=== PATIENT | female | born 1960 | race Hispanic/Latino ===

== ENCOUNTER 2018-10-31 09:12 | Emergency (ER) | payer BC ==
[~2018-10-31] VITALS: Ht 152.4 cm; Wt 63.5 kg
--- OUTSIDE RECORDS SUMMARY | 2018-10-31 09:15 | XMS REPORT ---
Author Author [facility] Address Unknown Phone Unavailable Care Team Providers Care Learning Support Resource Room Teacher Name Role Phone Unavailable Unavailable Payers Payer Name Policy Type Policy Number Effective Date Expiration Date Problems This patient has no known problems. Allergies, Adverse Reactions, Alerts Allergy Name Allergy Type Status Severity Reaction(s) Onset Date Inactive Date Treating Clinician Comments No Known Drug Intolerances DA Active U 2004-09-23 00:00:00 No Known Contrast Allergies DA Active U 2004-09-23 00:00:00 No Known Drug Allergies DA Active U 2004-09-23 00:00:00 No Known Food Allergies DA Active U 2004-09-23 00:00:00 No Known Other Allergies DA Active U 2004-09-23 00:00:00 Medications This patient has no known medications.
[2018-10-31 09:41] LABS: BILIRUBIN,URINE NEGATIVE (NEGATIVE); CLARITY,URINE CLEAR (CLEAR); COLOR,URINE YELLOW (YELLOW); KETONES,URINE NEGATIVE (NEGATIVE); LEUKOCYTE ESTERASE ,URINE NEGATIVE (NEGATIVE); NITRITE,URINE NEGATIVE (NEGATIVE); PROTEIN,URINE DIPSTICK NEGATIVE (NEGATIVE); URINE UROBILINOGEN 0.2 mg/dL (0.2 - 1)
[2018-10-31 09:47] LABS: BASOPHILS % 0.2 % (0.0-1.0); EOSINOPHILS # (AUTO) 0.2 (0.0-0.4); EOSINOPHILS % 2.7 % (0.0-6.0); HEMATOCRIT 39.5 % (34.2-44.1); HEMOGLOBIN 13.1 g/dL (12.0-16.0); LYMPHOCYTES # (AUTO) 1.7 (1.0-3.2); LYMPHOCYTES % 19.5 % (18.0-39.1); MEAN CORPUSCULAR HEMOGLOBIN 30.3 pg (28-32); MEAN CORPUSCULAR HGB CONC 33.2 g/dL (31-35); MEAN CORPUSCULAR VOLUME 91.4 fL (81-99); MONOCYTES # (AUTO) 0.6 (0.2-0.8); MONOCYTES % 7.2 % (4.4-11.3); PLATELET COUNT 244 x10e3/uL (140-360); RED BLOOD COUNT 4.32 x10e6/uL (3.6-5.1); RED CELL DISTRIBUTION WIDTH 14.5 % (11.7-14.4)
[2018-10-31 10:01] LABS: BACTERIA,URINE RARE /HPF; EPITHELIAL CELLS,URINE FEW /LPF
[2018-10-31 10:08] LABS: ALANINE AMINOTRANSFERASE 24 IU/L (0-55); ALKALINE PHOSPHATASE 69 IU/L (40-150); ANION GAP 13.1 mmol/L (8-16); BLOOD UREA NITROGEN 15 mg/dL (7-26); BUN/CREATININE RATIO 18 (6-25); CALCIUM 10.3 mg/dL (8.4-10.2); CARBON DIOXIDE 27 mmol/L (22-29); CHLORIDE 103 mmol/L (98-107); CREATININE, SERUM 0.83 mg/dL (0.57-1.11); EST GLOMERULAR FILTRATION RATE > 60 ML/MIN (60-); GLUCOSE 136 mg/dL (74-118); POTASSIUM 4.1 mmol/L (3.5-5.1); SODIUM 139 mmol/L (136-145)
[2018-10-31 10:35] LABS: RBC,URINE 0-5 /HPF (0-5)
[2018-10-31] MEDS ORDERED: DICYCLOMINE HCL20 MG PO (10:40)
[2018-10-31] MEDS ORDERED: SODIUM CHLORIDE 0.9% 1000ML 1,000 ML IV SCH (11:00)
[2018-10-31] MEDS ORDERED: KETOROLAC TROMETHAMINE 30 MG/ML VIAL IV NR (11:00)
--- NOTE | 2018-10-31 12:11 | Diagnostic Imaging Report ---
EXAM: CT Abdomen and Pelvis WITH intravenous contrast INDICATION: Left lower quadrant abdominal pain COMPARISON: None. TECHNIQUE: Abdomen and pelvis were scanned utilizing a multidetector helical scanner from the lung base to the pubic symphysis after administration of IV contrast. Coronal and sagittal reformations were obtained. Routine protocol was performed. Scan was performed during portal venous phase. IV CONTRAST: 100mL of Isovue 370 ORAL CONTRAST: Water RADIATION DOSE: Total DLP: 668.9 mGy*cm Dose modulation, iterative reconstruction, and/or weight based adjustment of the mA/kV was utilized to reduce the radiation dose to as low as reasonably achievable. FINDINGS: LOWER THORAX: Mild bibasilar dependent subsegmental atelectasis. Small hiatal hernia. HEPATOBILIARY: Diffuse hepatic steatosis. No focal liver lesions. No biliary ductal dilation. Unremarkable gallbladder. SPLEEN: No splenomegaly. PANCREAS: No focal masses or ductal dilatation. ADRENALS: No adrenal nodules. KIDNEYS/URETERS: No hydronephrosis, stones, or solid mass lesions. PELVIC ORGANS/BLADDER: Unremarkable. PERITONEUM / RETROPERITONEUM: No free air or fluid. LYMPH NODES: No lymphadenopathy. VESSELS: Unremarkable. GI TRACT: Severe sigmoid and descending colon diverticulosis. Wall thickening involving a segment of sigmoid measuring approximately 6 cm colon associated with many diverticuli with adjacent fat stranding. No free intraperitoneal air or associated focal fluid collection. No other areas of abnormal bowel wall thickening. No bowel obstruction. Normal appendix. BONES AND SOFT TISSUES: No acute osseous injury. No suspicious lytic or blastic lesions. IMPRESSION: Acute sigmoid diverticulitis. No free air or associated diverticular abscess. Hepatic steatosis. Signed by: Supriya Smith MD on 10/31/2018 12:07 PM
[2018-10-31] MEDS ORDERED: FLAGYL500 MG PO (12:45)
[2018-10-31] MEDS ORDERED: CIPRO500 MG PO (12:45)
[2018-10-31] MEDS ORDERED: IOPAMIDOL 370 MG/ML 200 ML INFUS..BTL INJ ONE (13:35)
[2018-10-31] MEDS ORDERED: SODIUM CHLORIDE 0.9% 50ML 50 ML ONE (13:35)
== END 2018-10-31 13:18 | disposition home or self-care (01) ==
LOC: ER 09:12
DX: R10.32 Left lower quadrant pain (principal); K57.32 Diverticulitis of large intestine without perforation or abscess without bleeding; K76.0 Fatty (change of) liver, not elsewhere classified
CPT/HCPCS: 36415; 74177; 80053; 81001; 85025; 99284; J1885; J7030; Q9967

== ENCOUNTER 2018-12-03 07:45 | Inpatient (IN) | payer BC ==
[~2018-12-03] VITALS: Ht 152.4 cm; Wt 63.5 kg
[~2018-12-03 07:45] MED LIST: CIPRO500 MG PO; DICYCLOMINE HCL20 MG PO; FLAGYL500 MG PO
[2018-12-03] MEDS ORDERED: SODIUM CHLORIDE 0.9% 1000ML 1,000 ML IV STA (08:11)
[2018-12-03 08:27] LABS: BASOPHILS % 0.2 % (0.0-1.0); EOSINOPHILS # (AUTO) 0.2 (0.0-0.4); EOSINOPHILS % 2.2 % (0.0-6.0); HEMATOCRIT 40.5 % (34.2-44.1); HEMOGLOBIN 13.6 g/dL (12.0-16.0); LYMPHOCYTES # (AUTO) 1.6 (1.0-3.2); LYMPHOCYTES % 15.5 % (18.0-39.1); MEAN CORPUSCULAR HEMOGLOBIN 30.4 pg (28-32); MEAN CORPUSCULAR HGB CONC 33.6 g/dL (31-35); MEAN CORPUSCULAR VOLUME 90.4 fL (81-99); MONOCYTES # (AUTO) 0.8 (0.2-0.8); MONOCYTES % 8.1 % (4.4-11.3); NEUTROPHILS # (AUTO) 7.6 (2.1-6.9); NEUTROPHILS % 73.6 % (38.7-80.0); PLATELET COUNT 225 x10e3/uL (140-360); RED BLOOD COUNT 4.48 x10e6/uL (3.6-5.1); RED CELL DISTRIBUTION WIDTH 13.5 % (11.7-14.4)
[2018-12-03 08:28] LABS: BILIRUBIN,URINE NEGATIVE (NEGATIVE); CLARITY,URINE SL CLOUDY (CLEAR); COLOR,URINE YELLOW (YELLOW); KETONES,URINE NEGATIVE (NEGATIVE); LEUKOCYTE ESTERASE ,URINE NEGATIVE (NEGATIVE); NITRITE,URINE NEGATIVE (NEGATIVE); PROTEIN,URINE DIPSTICK NEGATIVE (NEGATIVE); URINE UROBILINOGEN 0.2 mg/dL (0.2 - 1)
[2018-12-03 08:31] LABS: BACTERIA,URINE FEW /HPF; EPITHELIAL CELLS,URINE FEW /LPF; RBC,URINE 0-5 /HPF (0-5); WBC,URINE (MAN) 0-5 /HPF (0-5)
[2018-12-03 08:41] LABS: ALANINE AMINOTRANSFERASE 22 IU/L (0-55); ALBUMIN/GLOBULIN RATIO 1.1 (0.8-2.0); ALKALINE PHOSPHATASE 66 IU/L (40-150); ANION GAP 14.8 mmol/L (8-16); BLOOD UREA NITROGEN 15 mg/dL (7-26); BUN/CREATININE RATIO 20 (6-25); CALCIUM 9.5 mg/dL (8.4-10.2); CARBON DIOXIDE 22 mmol/L (22-29); CHLORIDE 102 mmol/L (98-107); CREATININE, SERUM 0.74 mg/dL (0.57-1.11); EST GLOMERULAR FILTRATION RATE > 60 ML/MIN (60-); GLUCOSE 184 mg/dL (74-118); MAGNESIUM 1.7 MG/DL (1.3-2.1); POTASSIUM 3.8 mmol/L (3.5-5.1); SODIUM 135 mmol/L (136-145)
[2018-12-03] MEDS ORDERED: PANTOPRAZOLE 40 MG 10ML VIAL IV ONE (09:00)
[2018-12-03] MEDS ORDERED: MORPHINE SULFATE 2 MG/ML SYR 1ML IV ONE (09:00)
[2018-12-03] MEDS ORDERED: ONDANSETRON HCL INJ 2MG/ML 2ML 2 MG/ML VIAL IV ONE (09:00)
--- NOTE | 2018-12-03 09:26 | Diagnostic Imaging Report ---
EXAMINATION: CHEST SINGLE (PORTABLE) INDICATION: ^ABD PAIN ^[id number] ^[id number] COMPARISON: CT abdomen and pelvis 10/31/2018 FINDINGS: AP view TUBES and LINES: None. LUNGS: Lungs are well inflated. Unchanged minimal atelectasis in both lung bases. There is no evidence of pneumonia or pulmonary edema. PLEURA: No pleural effusion or pneumothorax. HEART AND MEDIASTINUM: The cardiomediastinal silhouette is unremarkable.. BONES AND SOFT TISSUES: No acute osseous lesion. Soft tissues are unremarkable. UPPER ABDOMEN: No free air under the diaphragm. IMPRESSION: No acute thoracic abnormality. Signed by: Dr. Summer Lowe M.D. on 12/03/2018 9:23 AM
[2018-12-03] MEDS: METRONIDAZOLE 500MG/NS 100ML 100 ML IV SCH ×4 (10:04→23:45)
[2018-12-03] MEDS: PIPER-TAZ 3.375 GM 50 ML IV SCH ×3 (10:04→20:55)
--- NOTE | 2018-12-03 10:44 | Diagnostic Imaging Report ---
EXAM: CT Abdomen and Pelvis WITH contrast INDICATION: ^LLQ ABD PAIN ^[id number] ^[id number] COMPARISON: None. TECHNIQUE: Abdomen and pelvis were scanned utilizing a multidetector helical scanner from the lung base to the pubic symphysis after administration of IV contrast. Coronal and sagittal reformations were obtained. Routine protocol was performed. Scan was performed when during portal venous phase. IV CONTRAST: 100 mL of Isovue-370 ORAL CONTRAST: Water RADIATION DOSE: Total DLP: 242.9 mGy*cm Estimated effective dose: (DLP x 0.015 x size factor) mSv COMPLICATIONS: None FINDINGS: LINES and TUBES: None. LOWER THORAX: Unremarkable HEPATOBILIARY: No focal hepatic lesions. No biliary ductal dilation. GALLBLADDER: No radio-opaque stones or sludge. No wall thickening. SPLEEN: No splenomegaly. PANCREAS: No focal masses or ductal dilatation. ADRENALS: No adrenal nodules KIDNEYS/URETERS: Kidneys enhance symmetrically. No hydronephrosis. No cystic or solid mass lesions. No stones. GI TRACT: No abnormal distention or evidence of bowel obstruction. Extensive diverticulosis of the sigmoid colon with associated minimal wall thickening and mild surrounding fat stranding, better seen on series 2, image 61, consistent with mild acute diverticulitis. No abscess or free air. Appendix is normal. PELVIC ORGANS/BLADDER: Unremarkable. LYMPH NODES: No lymphadenopathy. VESSELS: Unremarkable. PERITONEUM / RETROPERITONEUM: No free air or fluid. BONES: Unremarkable. SOFT TISSUES: Unremarkable. IMPRESSION: Acute noncomplicated diverticulitis of the sigmoid colon. Signed by: Dr. Summer Lowe M.D. on 12/03/2018 10:40 AM
[2018-12-03] MEDS ORDERED: IOPAMIDOL 370 MG/ML 200 ML INFUS..BTL INJ ONE (12:33)
[2018-12-03] MEDS: SODIUM CHLORIDE 0.9% 1000ML 1,000 ML IV SCH (12:40)
[2018-12-03 13:38] VITALS: BP 150/71
[2018-12-03] MEDS ORDERED: DEXTROSE 50% SYRINGE 50 ML IV PRN (14:45)
--- NOTE | 2018-12-03 15:05 | History and Physical ---
Ms. Brown is a pleasant 58-year-old woman, who speaks only [place], presents to emergency room with complaint of left lower quadrant pain. HISTORY OF PRESENT ILLNESS: The patient reports that she finished a course of antibiotics in the last couple of weeks, but then the discomfort returned. She reports anytime she eats any food now that she has to have a bowel movement. PAST MEDICAL HISTORY: Significant for type 2 adult onset diabetes, diagnosed in 2007, diagnosed with hypertension in 2010. Has arthritis as well. PAST SURGICAL HISTORY: She denies any surgical history. PERSONAL AND SOCIAL HISTORY: She does not smoke or drink. Has no medical allergies. REVIEW OF SYSTEMS: CARDIAC: She was seen in my office for palpitations in 2013, but these did not recur. PHYSICAL EXAMINATION: GENERAL: At this time shows anxious woman, who is uncomfortable. VITAL SIGNS: She is afebrile. Blood pressure 113/60, pulse 70 and regular. HEAD, EYES, EARS, NOSE, AND THROAT: Unremarkable, NECK: No jugular venous distention. THORAX: Heart sounds S1, S2 are equal. No murmurs. LUNGS: Clear. ABDOMEN: Protuberant. Normal bowel sounds. Minimal tenderness left lower quadrant. No masses or organomegaly. EXTREMITIES: No cyanosis, clubbing, or edema. IMAGING DATA: CT of the abdomen suggested diverticulitis of the sigmoid colon. ASSESSMENT: 1. Diverticulitis. 2. Type 2 adult onset diabetes. 3. History of hypertension. PLAN: She has failed oral antibiotics. We will ask for GI consultation and sliding scale insulin. Further management based on clinical course. MD REVA Heller/MODL /[id number] cc: MD Nomi Morton MD
--- NOTE | 2018-12-03 16:15 | NUR ---
Spoke with Dr. Abby Davison regarding consult for pt. Gave report to . stated he will be in later to assess pt.
[2018-12-03 16:26] VITALS: BP 108/56
[2018-12-03] MEDS: INSULIN REGULAR, HUMAN 100 UNIT/1 ML 3ML VIAL SQ SCH ×2 (16:30→20:46)
[2018-12-03] MEDS: ONDANSETRON HCL INJ 2MG/ML 2ML 2 MG/ML VIAL IV PRN ×2 (17:12→23:41)
[2018-12-03] MEDS: MORPHINE SULFATE INJ 4 MG/ML INJ 1ML IV PRN (17:12)
[2018-12-03] MEDS ORDERED: PIOGLITAZONE HC45 MG PO (17:13)
[2018-12-03] MEDS ORDERED: GLIPIZIDE5 MG PO (17:13)
[2018-12-03 17:35] VITALS: BP 108/56
[2018-12-03 17:40] VITALS: BP 108/56
[2018-12-03 20:00] VITALS: BP 131/57
[2018-12-03 21:05] VITALS: BP 131/57
[2018-12-04] VITALS (7 sets, daily range): BP systolic 100–133; BP diastolic 51–74
[2018-12-04] MEDS: SODIUM CHLORIDE 0.9% 1000ML 1,000 ML IV SCH ×4 (00:35→20:34)
[2018-12-04] MEDS: PIPER-TAZ 3.375 GM 50 ML IV SCH ×4 (02:59→20:34)
[2018-12-04 05:36] LABS: BASOPHILS % 0.2 % (0.0-1.0); EOSINOPHILS # (AUTO) 0.1 (0.0-0.4); EOSINOPHILS % 1.4 % (0.0-6.0); HEMATOCRIT 36.7 % (34.2-44.1); HEMOGLOBIN 12.1 g/dL (12.0-16.0); LYMPHOCYTES # (AUTO) 1.4 (1.0-3.2); LYMPHOCYTES % 15.4 % (18.0-39.1); MEAN CORPUSCULAR HEMOGLOBIN 30.4 pg (28-32); MEAN CORPUSCULAR VOLUME 92.2 fL (81-99); MONOCYTES # (AUTO) 0.8 (0.2-0.8); MONOCYTES % 8.6 % (4.4-11.3); NEUTROPHILS # (AUTO) 6.8 (2.1-6.9); NEUTROPHILS % 74.1 % (38.7-80.0); PLATELET COUNT 189 x10e3/uL (140-360); RED BLOOD COUNT 3.98 x10e6/uL (3.6-5.1); RED CELL DISTRIBUTION WIDTH 13.7 % (11.7-14.4)
[2018-12-04] MEDS: METRONIDAZOLE 500MG/NS 100ML 100 ML IV SCH ×3 (05:43→17:31)
[2018-12-04 05:59] LABS: ALANINE AMINOTRANSFERASE 16 IU/L (0-55); ALBUMIN/GLOBULIN RATIO 0.9 (0.8-2.0); ALKALINE PHOSPHATASE 49 IU/L (40-150); ANION GAP 11.3 mmol/L (8-16); BLOOD UREA NITROGEN 6 mg/dL (7-26); BUN/CREATININE RATIO 8 (6-25); CALCIUM 9.4 mg/dL (8.4-10.2); CARBON DIOXIDE 26 mmol/L (22-29); CHLORIDE 106 mmol/L (98-107); CREATININE, SERUM 0.74 mg/dL (0.57-1.11); EST GLOMERULAR FILTRATION RATE > 60 ML/MIN (60-); GLUCOSE 128 mg/dL (74-118); POTASSIUM 4.3 mmol/L (3.5-5.1); SODIUM 139 mmol/L (136-145)
[2018-12-04] MEDS: INSULIN REGULAR, HUMAN 100 UNIT/1 ML 3ML VIAL SQ SCH ×4 (07:30→20:35)
[2018-12-04] MEDS: PANTOPRAZOLE 40 MG 10ML VIAL IV SCH (08:37)
[2018-12-04] MEDS: MORPHINE SULFATE INJ 4 MG/ML INJ 1ML IV PRN (10:15)
[2018-12-04] MEDS: ONDANSETRON HCL INJ 2MG/ML 2ML 2 MG/ML VIAL IV PRN (10:15)
[2018-12-04] MEDS ORDERED: BUPIVACAINE HCL 0.5% INJ 30 ML VIAL INJ ONE (12:04)
--- NOTE | 2018-12-04 16:55 | NUR ---
Nutrition Screen Note RD Recommendation for Physician: - When feasible ADAT to goal of 1500 ADA, GI Soft Plan of Care: RD following, monitoring for tolerance and adequacy Nutrition reason for involvement: Nutrition Risk Trigger- MST Primary Diagnose(s): diverticulitis PMH: DM2, HTN Ht: 60 in Wt: 140 lb BMI: 27.3 kg/m2 IBW: [address] Assessment: (12/04) 58 YOF admitted for diverticulitis, evaluated today per MST screen. Pt sleeping at time of visits, unable to wake, and no family present. Pt appears well nourished. Pt tolerating CL diet, consuming 75% of tray per chart. Pt wt stable per prior admit last month, no wt loss noted. Chart reviewed. Labs and meds reviewed. Will monitor and continue to follow. Current Diet: CL diet Malnutrition Evaluation (12/04/18) The patient does not meet criteria for a specified degree of malnutrition at this time. Will re-evaluate at follow-up as appropriate. Diet Education Needs Assessment: Diet education not indicated, pt on transitionary diet. Diet tolerance: tolerating po Nutrition Care Level: low Signed: Kathie Baldwin RD, LD, [facility]
--- NOTE | 2018-12-04 23:37 | NUR ---
DR Abby ROCHA IN UNIT,SAW PT.N/O RECEIVED TO ADVANCE DIET TO FULL LIQUIDS.
[2018-12-05] VITALS (8 sets, daily range): BP systolic 100–123; BP diastolic 54–59
[2018-12-05] MEDS: METRONIDAZOLE 500MG/NS 100ML 100 ML IV SCH ×4 (00:11→17:14)
[2018-12-05] MEDS: PIPER-TAZ 3.375 GM 50 ML IV SCH ×5 (02:38→21:15)
[2018-12-05] MEDS: SODIUM CHLORIDE 0.9% 1000ML 1,000 ML IV SCH ×4 (03:07→17:14)
--- NOTE | 2018-12-05 07:00 | NUR ---
BEDSIDE SHIFT REPORT RECEIVED FROM THE BOTTOM SANDER RN. PT IS AAOX4. EDUCATED PT ABOUT FALL PRECAUTIONS. CALL LIGHT WITH IN EASY REACH. INSTRUCTED PT TO CALL FOR ANY NEEDS. PT VERBALIZED UNDERSTANDING. BED IS LOW AND LOCKED. SIDE RAILS X2. PT DENIES NEEDS AT THIS TIME.
--- NOTE | 2018-12-05 07:14 | NUR ---
REPORT GIVEN TO ONCOMING NURSE.WALKING ROUNDS MADE.PT RESTING IN BED WITH NO S/S OF DISTRESS.
[2018-12-05] MEDS: INSULIN REGULAR, HUMAN 100 UNIT/1 ML 3ML VIAL SQ SCH ×4 (07:30→21:15)
[2018-12-05] MEDS: PANTOPRAZOLE 40 MG 10ML VIAL IV SCH (08:30)
--- NOTE | 2018-12-05 11:25 | NUR ---
PAGED DR. Charlotte ROCHA REGARDING ADVANCING THE DIET. CHANGE FULL LIQUID TO GI SOFT PER THE
--- NOTE | 2018-12-05 19:00 | NUR ---
BEDSIDE SHIFT REPORT GIVEN TO THE MARKET RESEARCH ASSISTANT RN. PT DENIED FURTHER NEEDS.
[2018-12-06] VITALS (8 sets, daily range): BP systolic 119–144; BP diastolic 58–78
[2018-12-06] MEDS: METRONIDAZOLE 500MG/NS 100ML 100 ML IV SCH ×5 (00:32→23:08)
[2018-12-06] MEDS: SODIUM CHLORIDE 0.9% 1000ML 1,000 ML IV SCH ×4 (03:07→21:13)
[2018-12-06] MEDS: PIPER-TAZ 3.375 GM 50 ML IV SCH ×4 (04:00→21:13)
[2018-12-06 05:21] LABS: BASOPHILS % 0.1 % (0.0-1.0); EOSINOPHILS # (AUTO) 0.2 (0.0-0.4); EOSINOPHILS % 1.7 % (0.0-6.0); HEMATOCRIT 32.4 % (34.2-44.1); HEMOGLOBIN 10.6 g/dL (12.0-16.0); LYMPHOCYTES # (AUTO) 1.7 (1.0-3.2); LYMPHOCYTES % 17.4 % (18.0-39.1); MEAN CORPUSCULAR HEMOGLOBIN 30.2 pg (28-32); MEAN CORPUSCULAR HGB CONC 32.7 g/dL (31-35); MEAN CORPUSCULAR VOLUME 92.3 fL (81-99); MONOCYTES # (AUTO) 0.8 (0.2-0.8); MONOCYTES % 8.3 % (4.4-11.3); NEUTROPHILS # (AUTO) 6.9 (2.1-6.9); NEUTROPHILS % 72.2 % (38.7-80.0); PLATELET COUNT 159 x10e3/uL (140-360); RED BLOOD COUNT 3.51 x10e6/uL (3.6-5.1); RED CELL DISTRIBUTION WIDTH 13.4 % (11.7-14.4)
[2018-12-06 05:47] LABS: ALANINE AMINOTRANSFERASE 11 IU/L (0-55); ALBUMIN 2.6 g/dL (3.5-5.0); ALBUMIN/GLOBULIN RATIO 0.9 (0.8-2.0); ALKALINE PHOSPHATASE 38 IU/L (40-150); ANION GAP 12.1 mmol/L (8-16); BLOOD UREA NITROGEN 5 mg/dL (7-26); BUN/CREATININE RATIO 7 (6-25); CARBON DIOXIDE 22 mmol/L (22-29); CHLORIDE 108 mmol/L (98-107); CREATININE, SERUM 0.68 mg/dL (0.57-1.11); EST GLOMERULAR FILTRATION RATE > 60 ML/MIN (60-); GLUCOSE 129 mg/dL (74-118); POTASSIUM 3.1 mmol/L (3.5-5.1); SODIUM 139 mmol/L (136-145)
--- NOTE | 2018-12-06 07:10 | NUR ---
REPORT GIVEN TO ONCOMING NURSE.WALKING ROUNDS MADE.PT RESTING IN BED WITH NO S/S OF DISTRESS.
[2018-12-06] MEDS: INSULIN REGULAR, HUMAN 100 UNIT/1 ML 3ML VIAL SQ SCH ×4 (07:30→21:43)
[2018-12-06] MEDS: PANTOPRAZOLE 40 MG 10ML VIAL IV SCH (07:30)
--- NOTE | 2018-12-06 07:30 | NUR ---
The pt. was received from the off-going nurse post bedside report. She denies pain or discomfort currently.
[2018-12-06] MEDS: POTASSIUM CHLORIDE 20 MEQ TAB CR PO SCH (17:28)
--- NOTE | 2018-12-06 19:30 | NUR ---
PATIENT RECEIVED. PATIENT IS RESTING IN BED, AAOX3. RESP EVEN AND UNLABORED. NO ACUTE DISTRESS NOTED. NO NEED VOIDED AT THIS TIME. CALL LIGHT WITHIN REACH. INSTRUCT TO CALL FOR ASSISTANCE. BED LOW/LOCKED. CONTINUE TO MONITOR CLOSELY
[2018-12-07] VITALS (7 sets, daily range): BP systolic 147–158; BP diastolic 67–82
[2018-12-07] MEDS: PIPER-TAZ 3.375 GM 50 ML IV SCH ×4 (02:46→21:48)
[2018-12-07] MEDS: METRONIDAZOLE 500MG/NS 100ML 100 ML IV SCH ×3 (05:27→18:14)
[2018-12-07] MEDS: SODIUM CHLORIDE 0.9% 1000ML 1,000 ML IV SCH ×3 (05:27→19:07)
[2018-12-07 05:36] LABS: ANION GAP 10.6 mmol/L (8-16); BLOOD UREA NITROGEN 7 mg/dL (7-26); BUN/CREATININE RATIO 11 (6-25); CALCIUM 8.3 mg/dL (8.4-10.2); CARBON DIOXIDE 23 mmol/L (22-29); CHLORIDE 109 mmol/L (98-107); CREATININE, SERUM 0.64 mg/dL (0.57-1.11); EST GLOMERULAR FILTRATION RATE > 60 ML/MIN (60-); GLUCOSE 146 mg/dL (74-118); POTASSIUM 3.6 mmol/L (3.5-5.1); SODIUM 139 mmol/L (136-145)
--- NOTE | 2018-12-07 07:10 | NUR ---
pt asleep resp even and unlabored at this time no distress noted, pt easily aroused, and able to make needs known, call light in reach.
[2018-12-07] MEDS: INSULIN REGULAR, HUMAN 100 UNIT/1 ML 3ML VIAL SQ SCH ×5 (07:30→21:35)
[2018-12-07 07:51] LABS: BASOPHILS % 0.1 % (0.0-1.0); EOSINOPHILS # (AUTO) 0.2 (0.0-0.4); EOSINOPHILS % 3.1 % (0.0-6.0); HEMATOCRIT 32.7 % (34.2-44.1); LYMPHOCYTES # (AUTO) 1.6 (1.0-3.2); MEAN CORPUSCULAR HEMOGLOBIN 30.7 pg (28-32); MEAN CORPUSCULAR HGB CONC 33.6 g/dL (31-35); MEAN CORPUSCULAR VOLUME 91.3 fL (81-99); MONOCYTES # (AUTO) 0.5 (0.2-0.8); MONOCYTES % 7.7 % (4.4-11.3); NEUTROPHILS # (AUTO) 4.7 (2.1-6.9); NEUTROPHILS % 66.7 % (38.7-80.0); PLATELET COUNT 153 x10e3/uL (140-360); RED BLOOD COUNT 3.58 x10e6/uL (3.6-5.1); RED CELL DISTRIBUTION WIDTH 13.2 % (11.7-14.4)
[2018-12-07] MEDS: POTASSIUM CHLORIDE 20 MEQ TAB CR PO SCH (09:00)
[2018-12-07] MEDS: PANTOPRAZOLE 40 MG 10ML VIAL IV SCH (11:35)
[2018-12-07] MEDS: ONDANSETRON HCL INJ 2MG/ML 2ML 2 MG/ML VIAL IV PRN (17:33)
[2018-12-07] MEDS: MORPHINE SULFATE INJ 4 MG/ML INJ 1ML IV PRN (17:33)
--- NOTE | 2018-12-07 19:24 | NUR ---
Bedside report given to oncoming nurse . pt stable at this time.
[2018-12-08] VITALS (8 sets, daily range): BP systolic 142–175; BP diastolic 65–83
[2018-12-08] MEDS: METRONIDAZOLE 500MG/NS 100ML 100 ML IV SCH ×4 (00:11→17:02)
[2018-12-08] MEDS: PIPER-TAZ 3.375 GM 50 ML IV SCH ×4 (03:42→21:58)
[2018-12-08] MEDS: ONDANSETRON HCL INJ 2MG/ML 2ML 2 MG/ML VIAL IV PRN (03:42)
[2018-12-08] MEDS: MORPHINE SULFATE INJ 4 MG/ML INJ 1ML IV PRN (03:42)
--- NOTE | 2018-12-08 07:00 | NUR ---
RCD PT AT BED PT IS ALERT AND ORIENTED RESTING ON BED IV PATENT BY SALINE FLUSH BED LOW AND LOCKED CALL LIGHT IN REACH
[2018-12-08] MEDS: PANTOPRAZOLE 40 MG 10ML VIAL IV SCH (07:30)
[2018-12-08] MEDS: INSULIN REGULAR, HUMAN 100 UNIT/1 ML 3ML VIAL SQ SCH ×4 (07:30→21:59)
[2018-12-08] MEDS: POTASSIUM CHLORIDE 20 MEQ TAB CR PO SCH (09:00)
[2018-12-08] MEDS ORDERED: DIATRIZOATE MEGL/DIATRIZOA SOD 30 ML BTL PO ONE (11:34)
--- NOTE | 2018-12-08 17:56 | Diagnostic Imaging Report ---
EXAM: CT Abdomen and Pelvis WITH intravenous contrast INDICATION: Diverticulitis COMPARISON: CT abdomen pelvis of 12/03/2018 TECHNIQUE: Abdomen and pelvis were scanned utilizing a multidetector helical scanner from the lung base to the pubic symphysis after administration of IV contrast. Coronal and sagittal reformations were obtained. Routine protocol was performed. Scan was performed during portal venous phase. IV CONTRAST: 100mL of Isovue 370 ORAL CONTRAST: Gastrografin RADIATION DOSE: Total DLP: 700.3 mGy*cm Dose modulation, iterative reconstruction, and/or weight based adjustment of the mA/kV was utilized to reduce the radiation dose to as low as reasonably achievable. FINDINGS: LOWER THORAX: New small bilateral pleural effusions. Minimal bibasilar dependent subsegmental atelectasis. No focal consolidation. HEPATOBILIARY: Diffuse hepatic steatosis. No focal liver lesion. Unremarkable gallbladder. SPLEEN: No splenomegaly. PANCREAS: No focal masses or ductal dilatation. ADRENALS: No adrenal nodules. KIDNEYS/URETERS: No hydronephrosis, stones, or solid mass lesions. PELVIC ORGANS/BLADDER: Status post hysterectomy. PERITONEUM / RETROPERITONEUM: Small volume free fluid in the pelvis. LYMPH NODES: No lymphadenopathy. VESSELS: Mild atherosclerotic calcifications of the nonaneurysmal abdominal aorta. GI TRACT: Persistent severe diverticulosis and pericolonic fat stranding, increased compared to the prior CT abdomen and pelvis of 12/03/2018. BONES AND SOFT TISSUES: No acute osseous injury. No suspicious lytic or blastic lesions. IMPRESSION: Interval worsening of acute sigmoid diverticulitis. No free air or focal drainable fluid collection. New small bilateral pleural effusions. Diffuse hepatic steatosis. Signed by: Supriya Smith MD on 12/08/2018 5:53 PM
--- NOTE | 2018-12-08 18:47 | NUR ---
PT RESTING ON BED BED SIDE REPORT GIVEN TO ONCOMING NURSE
[2018-12-08] MEDS ORDERED: SODIUM CHLORIDE 0.9% 50ML 50 ML ONE (19:05)
[2018-12-08] MEDS ORDERED: IOPAMIDOL 370 MG/ML 200 ML INFUS..BTL INJ ONE (19:06)
[2018-12-08] MEDS ORDERED: LISINOPRIL10 MG PO (23:58)
[2018-12-09] VITALS: BP 147/68
[2018-12-09] MEDS: METRONIDAZOLE 500MG/NS 100ML 100 ML IV SCH ×4 (00:28→17:36)
[2018-12-09] MEDS ORDERED: LEVOFLOXACIN 750MG/D5W 150ML 150 ML IV STA (01:14)
[2018-12-09] MEDS ORDERED: LEVOFLOXACIN 500MG/D5W 100ML 100 ML IV SCH (01:15)
--- NOTE | 2018-12-09 07:14 | NUR ---
REPORT GIVEN TO ONCOMING NURSE.WALKING ROUNDS DONE.PT RESTING IN BED WITH NO S/S OF DISTRESS.CALL LIGHT WITHIN EASY REACH.
[2018-12-09] MEDS: INSULIN REGULAR, HUMAN 100 UNIT/1 ML 3ML VIAL SQ SCH ×4 (07:30→21:40)
[2018-12-09 08:28] VITALS: BP 147/68
[2018-12-09 09:25] VITALS: BP 147/66
[2018-12-09] MEDS: PANTOPRAZOLE 40 MG 10ML VIAL IV SCH (09:25)
[2018-12-09] MEDS: POTASSIUM CHLORIDE 20 MEQ TAB CR PO SCH (09:25)
--- NOTE | 2018-12-09 12:05 | NUR ---
Patient ambulating in room, Dr Bryanna Bansal had rounds , no new orders, per him continue same antibiotics and diet.
[2018-12-09 12:52] VITALS: BP 156/79
[2018-12-09 17:13] VITALS: BP 158/75
[2018-12-09 20:00] VITALS: BP 158/69
[2018-12-10] VITALS (8 sets, daily range): BP systolic 152–165; BP diastolic 74–88
[2018-12-10] MEDS: LEVOFLOXACIN 500MG/D5W 100ML 100 ML IV SCH (01:09)
[2018-12-10] MEDS: ONDANSETRON HCL INJ 2MG/ML 2ML 2 MG/ML VIAL IV PRN (05:50)
[2018-12-10] MEDS: METRONIDAZOLE 500MG/NS 100ML 100 ML IV SCH ×4 (05:50→17:31)
[2018-12-10] MEDS: INSULIN REGULAR, HUMAN 100 UNIT/1 ML 3ML VIAL SQ SCH ×4 (07:30→21:29)
[2018-12-10] MEDS: PANTOPRAZOLE 40 MG 10ML VIAL IV SCH (08:20)
[2018-12-10] MEDS: POTASSIUM CHLORIDE 20 MEQ TAB CR PO SCH (09:44)
--- NOTE | 2018-12-10 18:35 | NUR ---
patient resting in bed, denies any pain , not in any distress, call light in reach
[2018-12-11] VITALS (8 sets, daily range): BP systolic 146–164; BP diastolic 65–71
[2018-12-11] MEDS: METRONIDAZOLE 500MG/NS 100ML 100 ML IV SCH ×4 (00:16→17:36)
[2018-12-11] MEDS: LEVOFLOXACIN 500MG/D5W 100ML 100 ML IV SCH (01:28)
[2018-12-11 06:09] LABS: ANION GAP 11.7 mmol/L (8-16); BLOOD UREA NITROGEN < 5 mg/dL (7-26); CALCIUM 8.9 mg/dL (8.4-10.2); CARBON DIOXIDE 24 mmol/L (22-29); CHLORIDE 106 mmol/L (98-107); CREATININE, SERUM 0.57 mg/dL (0.57-1.11); EST GLOMERULAR FILTRATION RATE > 60 ML/MIN (60-); GLUCOSE 105 mg/dL (74-118); POTASSIUM 3.7 mmol/L (3.5-5.1); SODIUM 138 mmol/L (136-145)
[2018-12-11 06:20] LABS: BUN/CREATININE RATIO 9 (6-25)
--- NOTE | 2018-12-11 06:26 | NUR ---
pt's iv to right wrist noted leaking.cath tip noted intact upon removal.dressing applied.call light within easy reach.
--- NOTE | 2018-12-11 07:00 | NUR ---
RCD PT AT BED PT IS ALERT AND ORIENTED PT RESTING ON BED IV PATENT BY SALINE FLUSH BED LOW AND LOCKED CALL LIGHT IN REACH
--- NOTE | 2018-12-11 07:20 | NUR ---
REPORT GIVEN TO ONCOMING NURSE,WALKING ROUNDS MADE.PT RESTING IN BED WITH NO S/S OF DISTRESS.CALL LIGHT WITHIN EASY REACH.
[2018-12-11] MEDS: INSULIN REGULAR, HUMAN 100 UNIT/1 ML 3ML VIAL SQ SCH ×4 (07:30→21:48)
[2018-12-11] MEDS: PANTOPRAZOLE 40 MG 10ML VIAL IV SCH (07:30)
[2018-12-11] MEDS: POTASSIUM CHLORIDE 20 MEQ TAB CR PO SCH (09:00)
--- NOTE | 2018-12-11 19:00 | NUR ---
received report from day nurse. patient is resting comfortably in bed. bed is in lowest position and call yates is within reach. will continue to monitor patient.
--- NOTE | 2018-12-11 19:00 | NUR ---
PT RESTING ON BED BED SIDE REPORT GIVEN TO ONCOMING NURSE
[2018-12-12] MEDS: METRONIDAZOLE 500MG/NS 100ML 100 ML IV SCH ×2 (00:02→05:26)
[2018-12-12 00:18] VITALS: BP 161/73
[2018-12-12] MEDS: LEVOFLOXACIN 500MG/D5W 100ML 100 ML IV SCH (01:08)
[2018-12-12 05:10] VITALS: BP 157/75
--- NOTE | 2018-12-12 07:00 | NUR ---
BEDSIDE SHIFT REPORT RECEIVED FROM SQUEEGEE TENDER RN. PT DENIES NEEDS AT THIS TIME.
--- NOTE | 2018-12-12 07:06 | NUR ---
report given to day nurse. patient is resting comfortably in bed. bed is in lowest position and call yates is within reach.
[2018-12-12] MEDS: INSULIN REGULAR, HUMAN 100 UNIT/1 ML 3ML VIAL SQ SCH (07:30)
[2018-12-12 08:03] VITALS: BP 167/83
[2018-12-12] MEDS: PANTOPRAZOLE 40 MG 10ML VIAL IV SCH (08:48)
[2018-12-12] MEDS: POTASSIUM CHLORIDE 20 MEQ TAB CR PO SCH (08:49)
[2018-12-12 09:50] VITALS: BP 167/83
[2018-12-12 11:40] VITALS: BP 153/87
[2018-12-12] MEDS ORDERED: FLAGYL250 MG PO (12:00)
[2018-12-12] MEDS ORDERED: LEVAQUIN500 MG PO (12:00)
--- NOTE | 2018-12-13 00:01 | Discharge Summary ---
Ms. Brown is a pleasant 58-year-old lady, diabetic, no previous surgeries, who presented on the with a complaint of abdominal discomfort. HISTORY OF PRESENT ILLNESS: She had completed a course of oral antibiotics at home from Dr. Meza. However, the abdominal discomfort returned. CAT scan suggested sigmoid diverticulitis. The patient was placed on IV antibiotics and home medications were continued. The patient's course was relatively uncomplicated until December 07 when she developed worsening left lower quadrant pain and tenderness. She had been seen and followed by Dr. Canelo Davison and Dr. Juan Carlos Bansal was consulted. As she then began to be somewhat better, he felt that she should be watched as an outpatient. The CT done on December 08 suggested worsening sigmoid diverticulitis, but without air or fluid collection. Today, the patient is eating, has had at least 1 bowel movement. She is ambulating in her room. She is eager to be discharged home and is discharged today to take 2 more weeks of oral antibiotics with Flagyl 500 mg every 6 hours and Levaquin 500 mg once a day for a total of 14 days. She will follow up with Dr. Canelo Davison and Dr. Juan Carlos Bansal in our office either on a scheduled basis or especially if she somehow gets worse again. It was Dr. Bansal's opinion that she would need surgery in the future. DISCHARGE DIAGNOSES: 1. Sigmoid diverticulitis. 2. Type 2 adult onset diabetes. 3. Hypertension. MD REVA Heller/LIVIER /[id number] cc: MD Juan Carlos Luna MD Maurice S Haddad, MD
== END 2018-12-12 12:26 | disposition home or self-care (01) | DRG 392 ==
LOC: ER 07:45 → ERHOLD 11:07 → MED/SURG2 13:35
PROVIDERS: ADMIT Internal Medicine Cardiovascular Disease; ATTEND Internal Medicine Cardiovascular Disease
DX: K57.32 Diverticulitis of large intestine without perforation or abscess without bleeding (principal); I10 Essential (primary) hypertension; E11.9 Type 2 diabetes mellitus without complications; N83.209 Unspecified ovarian cyst, unspecified side; Z82.49 Family history of ischemic heart disease and other diseases of the circulatory system; Z79.84 Long term (current) use of oral hypoglycemic drugs; D64.9 Anemia, unspecified
CPT/HCPCS: 36415; 71045; 74177; 80048; 80053; 81001; 82948; 83735; 85025; 87086; 93005; 96372; 99284; J1817; J1956; J2270; J2405; J2543; J7030; Q9967

== ENCOUNTER → 2019-03-09 | Day surgery (SDC) | payer BC ==
[~2019-03-09] MED LIST changes: +ASPIR 8181 MG PO; +FLAGYL250 MG PO; +GLIPIZIDE5 MG PO; +HYOSCYAMINE 0.125 MG TAB ONE; +INSULIN REGULAR, HUMAN 100 UNIT/1 ML 3ML VIAL ONE; +LEVAQUIN500 MG PO; +LIDOCAINE HCL 2% LOCAL INJ 5 ML SDV VIAL INJ ONE; +LISINOPRIL10 MG PO; +LOVASTATIN20 MG PO; +MIDAZOLAM HCL 2 MG/2 ML VIAL ONE; +PIOGLITAZONE HC45 MG PO; +PROPOFOL IV EMULSION 10 MG/ML 50 ML VIAL ONE
[2019-03-09 09:10] VITALS: BP 109/65
--- NOTE | 2019-03-09 14:30 | Operative Report ---
DATE OF PROCEDURE: 03/09/2019 SURGEON: Canelo Davison MD PROCEDURE: Colonoscopy with polypectomy. INDICATION FOR COLONOSCOPY: Colorectal cancer screening. MEDICATIONS: The patient was done under MAC, please see anesthesiologist's note. PROCEDURE IN DETAIL: With the patient in the left lateral decubitus position, a flexible fiberoptic Olympus colonoscope was inserted into the rectum with ease and advanced all the way to the cecum. The scope was then withdrawn slowly. Mucosa overlying the cecum appeared to be within normal limits. Some scattered diverticular disease was noted throughout, but it was more prominent in the left colon. One polyp approximately 4 mm in size sessile was removed from the distal ascending colon. As mentioned, the mucosa overlying the transverse, descending, and sigmoid scattered diverticular disease was noted that was fairly extensive in the distal descending and the sigmoid colon. The rectum appeared to be within normal limits. The scope was then retroflexed into the distal rectum and small internal hemorrhoids were noted, none of which was actively bleeding. The scope was then straightened out, it was subsequently withdrawn, and the patient tolerated the procedure well. IMPRESSION: 1. Pandiverticulosis. 2. Ascending colon polyp, removed per snare electrocautery. 3. Internal hemorrhoids, none actively bleeding. PLAN: Follow up histology. Initiate high-fiber, low-fat diet. Initiate high-fiber supplement. The patient might benefit from a followup colonoscopy in 3 to 5 years. Canelo Davison MD [facility] [place] /[id number] cc: Nomi Meza MD
== END | disposition home or self-care (01) ==
LOC: OR 06:06
PROVIDERS: ATTEND Internal Medicine Gastroenterology
DX: K57.30 Diverticulosis of large intestine without perforation or abscess without bleeding (principal); E11.9 Type 2 diabetes mellitus without complications; I10 Essential (primary) hypertension; K64.8 Other hemorrhoids; K63.5 Polyp of colon; Z01.810 Encounter for preprocedural cardiovascular examination; Z79.82 Long term (current) use of aspirin; Z79.84 Long term (current) use of oral hypoglycemic drugs
CPT/HCPCS: 36415; 45385; 82948; 93005; J2001; J2250; J2704; 45378; J1817